=== PATIENT | female | born 1980 | race Caucasian/White ===

== ENCOUNTER 2016-10-19 16:39 | Emergency (ER) | payer OTHER ==
[~2016-10-19] VITALS: Ht 165.1 cm; Wt 98.0 kg
[~2016-10-19 16:39] MED LIST: ATV5X PO; OXYC1TAB3 PO; PROM25TA16 PO; SUCR1TAB PO; ZLF/50 PO
[2016-10-19 17:01] VITALS: TEMP 36.8; Ht 165.1 cm; Wt 98.0 kg
[2016-10-19] MEDS ORDERED: HYDROCODONE/ACETAMOPHEN 5/325MG TAB PO ONE (17:45)
[2016-10-19] MEDS ORDERED: TNR25 PO (18:12)
[2016-10-19] MEDS ORDERED: ZLF/100 PO (18:12)
--- NOTE | 2016-10-19 18:14 | DIAGNOSTIC IMAGING REPORT ---
SACRUM COCCYX MIN 2 VIEWS CLINICAL HISTORY: FALL, EVAL FX. Sacrum/coccyx pain. COMPARISON STUDY: Sacrum/coccyx 10/24/2013. FINDINGS: The bilateral sacroiliac joints are intact. There is a midline intrauterine device. No fractures within the sacrum or coccyx. Presacral soft tissues are intact. IMPRESSION: No fractures within the sacrum or coccyx. Electronically signed by: Roderick Cardenas M.D. 10/19/2016 6:12 PM Dictated Date/Time: 10/19/2016 6:11 PM
--- NOTE | 2016-10-19 18:15 | DIAGNOSTIC IMAGING REPORT ---
RIGHT ELBOW 3 VIEWS HISTORY: Right elbow pain. COMPARISON: None. FINDINGS: There is no fracture or dislocation. Mild soft tissue swelling at the olecranon. There is no joint effusion. No radiopaque foreign bodies. IMPRESSION: No fractures. Electronically signed by: Roderick Cardenas M.D. 10/19/2016 6:13 PM Dictated Date/Time: 10/19/2016 6:13 PM
[2016-10-19] MEDS ORDERED: HYDR-5688 PO (18:29)
--- NOTE | 2016-10-19 18:30 | EMERGENCY ROOM VISIT NOTE ---
ED Visit Note First contact with patient: 17:22 CHIEF COMPLAINT: Tailbone and right elbow pain after a fall HISTORY OF PRESENT ILLNESS: Patient is a 36-year-old white female who presents emergency department for evaluation of tailbone pain and right elbow pain. She sustained a fall last evening. She was trying to get in through a window. She states that she had stepped through the window with her right leg, and her left leg slipped, causing her to fall straddling the window ledge, injuring her tailbone. She then fell out of the window and struck the right elbow. She notes excruciating tailbone pain that she presently rates a 10/10. It is worse with any type of movement. She tried soaking in a hot tub, taking ibuprofen and applying topical Biofreeze. The pain is located low in her tailbone in the gluteal region, and does not radiate. There is no low back pain. The elbow is only slightly swollen and bruised that she has been abrasion over it. She denies any abdominal pain, urinary symptoms or perineal injury. There is no leg numbness or weakness. There has been no vomiting or abdominal pain. REVIEW OF SYSTEMS: Review of systems as per HPI. All other systems reviewed were negative. At least 6 systems reviewed. PMH: Electronic medical records are reviewed and summarized as above/below. See Problem List. SOCIAL HISTORY: Patient lives at home. PHYSICAL EXAM: Vital Signs: Reviewed Nurse's notes. MENTAL STATUS: Obese 36-year -old white female who is awake and alert and laying on her left side on the gurney in moderate distress due to her back pain. She has significant discomfort when she tries to stand up. HEART: Regular rate and rhythm. LUNGS: Clear to auscultation. ABDOMEN: Soft, non-tender, no masses or organs felt. Bowel sounds normoactive. BACK: Examination of the patient's back does not show any ecchymosis, abrasions or outward signs of trauma. She has tenderness to palpation low over the sacrum and coccygeal region. There is no midline tenderness over the spinous processes of the lumbar spine. Range of motion is diminished secondary to discomfort. She admits with an antalgic gait. She is able to toe and heel rise without difficulty. EXTREMITIES: Examination of the right elbow shows a superficial abrasion over the tip of the olecranon which is slightly swollen and ecchymotic. She is tender over the abrasion only. She can extend and flex fully, has full pronation and supination. EMERGENCY DEPARTMENT COURSE: The patient was medicated with one Happy tablet orally and had sacrum/coccyx x-rays and right elbow x-rays performed. There is no evidence for acute fracture or bony abnormality noted. Conservative care measures were discussed. Patient was advised to apply ice to the coccyx region and get a doughnut pillow for comfort. Regarding her elbow she has sustained an abrasion and a contusion. She was encouraged to watch for any signs of infection. Keep the area covered with antibiotic ointment and a bandage. She was discharged to home with a family member driving. She rated her discomfort a 7/10 at discharge. Differential diagnosis includes sacral/coccygeal fracture, contusion, pilonidal cyst abscess, among others. Patient was reviewed in the [facility] Pres[facility] Drug Monitoring Program, and there were no red flags noted. SACRUM COCCYX MIN 2 VIEWS CLINICAL HISTORY: FALL, EVAL FX. Sacrum/coccyx pain. COMPARISON STUDY: Sacrum/coccyx 10/24/2013. FINDINGS: The bilateral sacroiliac joints are intact. There is a midline intrauterine device. No fractures within the sacrum or coccyx. Presacral soft tissues are intact. IMPRESSION: No fractures within the sacrum or coccyx. RIGHT ELBOW 3 VIEWS HISTORY: Right elbow pain. COMPARISON: None. FINDINGS: There is no fracture or dislocation. Mild soft tissue swelling at the olecranon. There is no joint effusion. No radiopaque foreign bodies. IMPRESSION: No fractures. Problem List Medical Problems: (1) Benign hypertension Status: Chronic Surgical Problems: (1) section Status: Resolved Current/Historical Medications Scheduled Atenolol (Atenolol), 25 MG PO DAILY Sertraline HCl (Sertraline HCl), 100 MG PO DAILY Scheduled PRN Hydrocodone/Acetaminophen 5MG/325MG (Happy 5MG/325MG), 1-2 TABLETS PO Q4 PRN for Pain Lorazepam (Lorazepam), 0.5 MG PO TID PRN for Anxiety Allergies Coded Allergies: Prednisone (Verified Allergy, Intermediate, HIVES, DIZZINESS, 10/19/16) Carbinoxamine (Verified Allergy, Unknown, RONDEC-RASH, 2/5/17) Replaces RONDEC Celecoxib (Verified Allergy, Unknown, RASH, 10/19/16) Naproxen (Verified Allergy, Unknown, RASH-HAS TAKEN MOTRIN AT HOME, 10/19/16 ) Pseudoephedrine (Verified Allergy, Unknown, RONDEC-RASH, 10/19/16) Replaces RONDEC Uncoded Allergies: STEROID INJECTION (Allergy, Unknown, chills, sweats, vomiting, nausea, 11/24) Vital Signs Date Time Temp Pulse Resp B/P Pulse Ox O2 Delivery O2 Flow Rate FiO2 10/19/16 18:59 91 20 184/105 97 10/19/16 17:01 36.8 98 20 155/105 100 Room Air Medications Administered Medications (Trade) Dose Ordered Sig/Jamar Route Start Time Stop Time Status Last Admin Dose Admin Acetaminophen/ Hydrocodone Bitart (Happy 5/325 Tab) 1 tab NOW ONCE PO 10/19/16 17:45 10/19/16 17:46 DC 10/19/16 17:42 1 TAB Departure Information Impression Primary Impression: Coccygeal contusion Additional Impressions: Elbow abrasion Elbow contusion Prescriptions Hydrocodone/Acetaminophen 5MG/325MG (Happy 5MG/325MG) Tab 1-2 TABLETS PO Q4 Y for Pain, #20 TAB For Initial Treatment Prov: Victorina Cruz PA 10/19/16 Referrals Anika Maloney M.D. (MEDICAL) (PCP) Patient Instructions My [facility] Additional Instructions DO NOT drive, drink alcohol, operate machinery, or perform dangerous activities today. You were given medications in the ER that can affect your ability to safely function or operate a vehicle. Hydrocodone/Acetaminophen (Happy) 5/325 mg: Take 1-2 pills every four hours for breakthrough pain. Avoid alcohol, operating machinery or dangerous equipment, working on ladders or roofs, DRIVING, or situations where being under the influence may be dangerous. It is recommended to use an olpr-vkh-wungjkc stool softener such as Colace, 100mg twice daily while taking this medication to avoid constipation. Ibuprofen(Motrin, Advil) may be used for fever or pain. Use 600mg every six hours as needed. Take with food. Avoid using more than 2400mg in a 24 hour period. Do not use 2400mg per day for more than three consecutive days without physician direction. Prolonged inappropriate use can lead to stomach upset or ulcers. This medication can be taken if you need to drive, work, or perform activities which may be dangerous when taking narcotic pain medication. (AND/OR) Acetaminophen(Tylenol) may be used for fever or pain. Use 1000mg every six hours as needed. Avoid using more than 3000mg in a 24 hour period. This medication can be taken if you need to drive, work, or perform activities which may be dangerous when taking narcotic pain medication. Rest and avoid heavy lifting until your symptoms resolve and then gradually return to full activity. A good rule of thumb is if it hurts your back to perform a certain activity, then it should be avoided until you are healthy again. Ice as needed for pain. Sit on a donut pillow for comfort. Continue current medications. Return to the ER immediately for any numbness, tingling, severe pain, loss of control of your bowels or bladder, inability to walk, or as needed. Follow up with your primary care physician within 3-5 days for a recheck of your current condition. Problem Qualifiers Primary Impression: Coccygeal contusion Encounter type: initial encounter Qualified Codes: S30.0XXA - Contusion of lower back and pelvis, initial encounter Additional Impressions: Elbow abrasion Encounter type: initial encounter Laterality: right Qualified Codes: S50.311A - Abrasion of right elbow, initial encounter Elbow contusion Encounter type: initial encounter Laterality: right Qualified Codes: S50.01XA - Contusion of right elbow, initial encounter
[2016-10-19 18:59] VITALS: BP 184/105; PULSE 91; O2SAT 97
== END 2016-10-19 19:00 | disposition home or self-care (01) ==
LOC: C.EDB 16:40 → C.EDD 19:00
DX: S30.0XXA Contusion of lower back and pelvis, initial encounter (principal); S50.01XA Contusion of right elbow, initial encounter; S50.311A Abrasion of right elbow, initial encounter; W01.0XXA Fall on same level from slipping, tripping and stumbling without subsequent striking against object, initial encounter; I10 Essential (primary) hypertension; Z79.899 Other long term (current) drug therapy; Z88.8 Allergy status to other drugs, medicaments and biological substances

== ENCOUNTER 2016-11-28 16:44 | Emergency (ER) | payer OTHER ==
[~2016-11-28] VITALS: Ht 162.6 cm; Wt 97.1 kg
[~2016-11-28 16:44] MED LIST changes: +HYDR-5688 PO; -OXYC1TAB3 PO; -PROM25TA16 PO; -SUCR1TAB PO; +TNR25 PO; +ZLF/100 PO; -ZLF/50 PO
[2016-11-28 16:58] VITALS: TEMP 36.9; Ht 162.6 cm; Wt 97.1 kg
[2016-11-28] MEDS ORDERED: HYDR-5688 PO (17:29)
[2016-11-28] MEDS ORDERED: PENI-82 PO (17:29)
[2016-11-28 17:34] VITALS: BP 180/120; PULSE 78; O2SAT 96
--- NOTE | 2016-11-28 20:32 | EMERGENCY ROOM VISIT NOTE ---
ED Visit Note First contact with patient: 17:16 CHIEF COMPLAINT: Toothache HISTORY OF PRESENT ILLNESS: This 36-year-old female patient presented to the emergency department with a progressive toothache for past one month. The patient believes it is coming from her left upper molar. The patient has followed with local urgent care clinics and has done well with antibiotics. She has contacted her dentist office on a weekly basis, and was not able to find a cancellation appointment to be seen more rapidly. She has an appointment in 7 days. The pain is now steady and severe and radiates to the face. They rate their pain a 8/10 and the ibuprofen and Tylenol they have been taking has not relieved the pain. Denies facial swelling or fever. The patient denies any discharge from the mouth. REVIEW OF SYSTEMS: A 6 system review of systems was completed with positives and pertinent negatives listed in the HPI. ALLERGIES: See EMR MEDICATIONS: See EMR PMH: See EMR SOCIAL HISTORY: Lives locally PHYSICAL EXAM: Vitals are noted on the nurse's note and reviewed by myself. Vital signs stable. GENERAL: White female, in no acute distress, nondiaphoretic, well-developed well -nourished. Mouth: The left upper molar #15 tooth is very carious and the gum is swollen and tender around it, without any discharge or signs of an abscess. The remainder of the pharynx and tonsils are without erythema, edema, or exudate. The airway is patent. There is no facial swelling, cervical or submandibular lymphadenopathy. The patient appears uncomfortable and in pain. The patient has overall fair dental hygiene. EARS: External auditory canals clear, tympanic membranes pearly rodgers without erythema or effusion bilaterally. HEART: Regular rate and rhythm without murmur gallop or rub LUNG: Clear to auscultation bilateral ED COURSE: Physical exam and history were performed. Nursing notes and EMR were reviewed. The patient appears to have left upper dental pain for the past several weeks. The patient does have an appointment scheduled in one week with her dentist. She does not have concerning record and the [place] drug monitoring program. She is not seen here regularly for pain-related complaints. She will be given a course of Pen-Vee K and a short course of Vicodin for pain control. She is to keep her dental appointment, and was invited back to the ER with any new, worsening, or concerning symptoms.. Problem List Medical Problems: (1) Benign hypertension Status: Chronic Surgical Problems: (1) section Status: Resolved Current/Historical Medications Scheduled Atenolol (Atenolol), 12.5 MG PO DAILY Penicillin V Potassium (Veetids), 500 MG PO QID Sertraline HCl (Sertraline HCl), 100 MG PO DAILY Scheduled PRN Hydrocodone/Acetaminophen 5MG/325MG ([place] 5MG/325MG), 1 TABLET PO Q6 PRN for Pain Lorazepam (Lorazepam), 0.5 MG PO TID PRN for Anxiety Allergies Coded Allergies: Prednisone (Verified Allergy, Intermediate, HIVES, DIZZINESS, 11/28/16) Carbinoxamine (Verified Allergy, Unknown, RONDEC-RASH, 11/28/16) Replaces RONDEC Celecoxib (Verified Allergy, Unknown, RASH, 11/28/16) Naproxen (Verified Allergy, Unknown, RASH-HAS TAKEN MOTRIN AT HOME, ) Pseudoephedrine (Verified Allergy, Unknown, RONDEC-RASH, 11/28/16) Replaces RONDEC Uncoded Allergies: STEROID INJECTION (Allergy, Unknown, chills, sweats, vomiting, nausea, 11/24) Vital Signs Date Time Temp Pulse Resp B/P Pulse Ox O2 Delivery O2 Flow Rate FiO2 11/28/16 17:34 78 18 180/120 96 11/28/16 16:58 36.9 99 18 170/125 97 Room Air Departure Information Impression Primary Impression: Pain, dental Dispostion Home / Self-Care Condition GOOD Prescriptions Penicillin V Potassium (Veetids) 500 Mg Tab 500 MG PO QID for 10 Days, #40 TAB Prov: Crescencio Venegas PA-C 11/28/16 Hydrocodone/Acetaminophen 5MG/325MG ([place] 5MG/325MG) Tab 1 TABLET PO Q6 Y for Pain, #12 TAB For Initial Treatment Prov: Crescencio Veneags PA-C 11/28/16 Forms HOME CARE DOCUMENTATION FORM, IMPORTANT VISIT INFORMATION Patient Instructions My [facility] Additional Instructions You were seen and evaluated today on an emergency basis only. This is not a substitute for, or an effort to provide, complete comprehensive medical care. It is not possible to recognize and treat all injuries or illnesses in a single emergency department visit. For this reason it is recommended that you followup with your dentist next Thursday as scheduled for definitive care. [place] (hydrocodone/acetaminophen) 5/325 mg every 6 hours as needed for worsening breakthrough pain. Do not drink or drive on [place]. This medication will likely make you tired. Do not take [place] and Tylenol at the same time as both contain acetaminophen. [place] may cause constipation. You may wish to take an gmok-pav-iydfnrz stool softener like Colace if this occurs. Take Pen-Vee K 500 mg 4 times daily for the next 10 days. You are welcome to return to the emergency department anytime with new, worsening, or concerning symptoms.
== END 2016-11-28 17:36 | disposition home or self-care (01) ==
LOC: C.EDB 16:44 → C.EDD 17:36
DX: K08.89 Other specified disorders of teeth and supporting structures (principal); I10 Essential (primary) hypertension; Z79.899 Other long term (current) drug therapy

== ENCOUNTER 2016-11-30 15:15 | Emergency (ER) | payer OTHER ==
[~2016-11-30] VITALS: Ht 162.6 cm; Wt 96.8 kg
[~2016-11-30 15:15] MED LIST changes: +PENI-82 PO
[2016-11-30 15:26] VITALS: TEMP 37.1; Ht 162.6 cm; Wt 96.8 kg
[2016-11-30] MEDS ORDERED: PENI500T2 PO (15:53)
[2016-11-30] MEDS ORDERED: HYDR-5688 PO (15:53)
[2016-11-30] MEDS ORDERED: CEFTRIAXONE SOD 350MG/ML 1 GM VIAL IM ONE (16:00)
[2016-11-30] MEDS ORDERED: AMOXICIL/CLAVU 875MG HOME PACK PO ONE (16:00)
[2016-11-30] MEDS ORDERED: AMOX875T PO (16:04)
[2016-11-30 17:12] VITALS: BP 138/80; PULSE 76; O2SAT 96
--- NOTE | 2016-11-30 21:39 | EMERGENCY ROOM VISIT NOTE ---
ED Visit Note First contact with patient: 15:52 CHIEF COMPLAINT: Toothache HISTORY OF PRESENT ILLNESS: This 36-year-old female patient presented to the emergency department with a progressive toothache for past several days. The patient was initially seen 2 days ago by myself in the ER with this complaint. At that time she is given a prescription for Pen-Vee K and Vicodin. The patient has taken 6 doses of the antibiotic, and has had worsening of her pain. She now complains of tenderness in her cheek and facial swelling. The patient believes it is coming from a left upper molar. The patient has a dentist appointment set up in 5 days. They rate their pain a 8/10. The patient denies any discharge from the mouth. REVIEW OF SYSTEMS: A 6 system review of systems was completed with positives and pertinent negatives listed in the HPI. ALLERGIES: See EMR MEDICATIONS: See EMR PMH: See EMR SOCIAL HISTORY: Lives locally PHYSICAL EXAM: Vitals are noted on the nurse's note and reviewed by myself. Vital signs stable. GENERAL: White female, in no acute distress, nondiaphoretic, well-developed well -nourished. Mouth: The left upper #15 tooth is very carious and the gum is swollen and tender around it, without any discharge or signs of an abscess. The remainder of the pharynx and tonsils are without erythema, edema, or exudate. The airway is patent. There is minimal facial swelling. No lymphadenopathy. The patient appears uncomfortable and in pain. The patient has overall fair dental hygiene. EARS: External auditory canals clear, tympanic membranes pearly rodgers without erythema or effusion bilaterally. HEART: Regular rate and rhythm without murmur gallop or rub LUNG: Clear to auscultation bilateral ED COURSE: Physical exam and history were performed. Nursing notes and EMR were reviewed. The patient was seen by myself 2 days ago and treated for a dental infection. She has some very minimal left-sided facial swelling today that is new from 2 days ago. The patient does not appear toxic or with signs of abscess. No [place] appreciated. The patient will be transitioned to Augmentin by mouth. She will be given 1 g IM Rocephin here. The patient was asked to keep her appointment with her dentist later this week. If she does have progressing symptoms I recommended that she return to the ER immediately, as she may need IV intervention. At this time I do not feel this is necessary. The patient was pleased with this plan of voice understanding. Problem List Medical Problems: (1) Benign hypertension Status: Chronic Surgical Problems: (1) section Status: Resolved Current/Historical Medications Scheduled Amoxicillin & Pot Clavulanate (Augmentin 875-125 mg), 1 TAB PO BID Atenolol (Atenolol), 12.5 MG PO DAILY Penicillin V Potassium (Veetids), 500 MG PO QID Sertraline HCl (Sertraline HCl), 100 MG PO DAILY Scheduled PRN Hydrocodone/Acetaminophen 5MG/325MG ([place] 5MG/325MG), 1 TABLET PO Q6H PRN for Pain Lorazepam (Lorazepam), 0.5 MG PO TID PRN for Anxiety Allergies Coded Allergies: Prednisone (Verified Allergy, Intermediate, HIVES, DIZZINESS, 11/30/16) Carbinoxamine (Verified Allergy, Unknown, RONDEC-RASH, 11/30/16) Replaces RONDEC Celecoxib (Verified Allergy, Unknown, RASH, 11/30/16) Naproxen (Verified Allergy, Unknown, RASH-HAS TAKEN MOTRIN AT HOME, ) Pseudoephedrine (Verified Allergy, Unknown, RONDEC-RASH, 11/30/16) Replaces RONDEC Uncoded Allergies: STEROID INJECTION (Allergy, Unknown, chills, sweats, vomiting, nausea, 11/24) Vital Signs Date Time Temp Pulse Resp B/P Pulse Ox O2 Delivery O2 Flow Rate FiO2 11/30/16 17:12 76 20 138/80 96 11/30/16 15:26 37.1 96 20 142/101 97 Room Air Medications Administered Medications (Trade) Dose Ordered Sig/Jamar Route Start Time Stop Time Status Last Admin Dose Admin Amoxicillin/ Clavulanate Potassium (Augmentin 875MG Home Pack) 1 homepack UD ONCE PO 11/30/16 16:00 11/30/16 16:02 DC 11/30/16 17:06 1 HOMEPACK Ceftriaxone Sodium (Rocephin Im) 1,000 mg NOW ONCE IM 11/30/16 16:00 11/30/16 16:02 DC 11/30/16 17:05 1,000 MG Departure Information Impression Primary Impression: Pain, dental Dispostion Home / Self-Care Condition GOOD Prescriptions Amoxicillin & Pot Clavulanate (Augmentin 875-125 mg) 1 Tab Tab 1 TAB PO BID for 9 Days, #18 TAB Prov: Crescencio Venegas PA-C 11/30/16 Forms HOME CARE DOCUMENTATION FORM, IMPORTANT VISIT INFORMATION Patient Instructions My [facility] Additional Instructions You were seen and evaluated today on an emergency basis only. This is not a substitute for, or an effort to provide, complete comprehensive medical care. It is not possible to recognize and treat all injuries or illnesses in a single emergency department visit. For this reason it is recommended that you followup with your dentist as scheduled on Thursday. Discontinue pen VK. Begin Augmentin. Amoxicillin Clavulanate (Augmentin) 875mg: Take one pill twice daily for 10 total days for your infection. All antibiotics can cause diarrhea. If this occurs and you feel worse or it does not resolve in 1-2 days follow up with your doctor or return to the Emergency Department as this could be signs of serious underlying problems. Any medication can cause an allergic reaction, stop the pills immediately and return to the ER for rash, hives, breathing difficulties, or swelling. You are welcome to return to the emergency department anytime with new, worsening, or concerning symptoms.
== END 2016-11-30 17:13 | disposition home or self-care (01) ==
LOC: C.EDB 15:16 → C.EDD 17:13
DX: K08.89 Other specified disorders of teeth and supporting structures (principal); I10 Essential (primary) hypertension

== ENCOUNTER 2017-10-11 21:28 | Emergency (ER) | payer OTHER ==
[~2017-10-11] VITALS: Ht 162.6 cm; Wt 93.1 kg
[~2017-10-11 21:28] MED LIST changes: -PENI-82 PO; +PENI500T2 PO
[2017-10-11 21:32] VITALS: TEMP 36.7; Ht 162.6 cm; Wt 93.1 kg
[2017-10-11] MEDS ORDERED: CYCL5TAB PO (21:54)
[2017-10-11] MEDS ORDERED: MELO7.5T5 PO (21:54)
[2017-10-11] MEDS ORDERED: HYDROmorphone INJ 1 MG/ML SYR IM STA (22:10)
[2017-10-11] MEDS ORDERED: OXYC1TAB3 PO (23:27)
[2017-10-11] MEDS ORDERED: LIDODERM (LIDOCAINE) PATCH 5% TD STA (23:29)
[2017-10-11] MEDS ORDERED: OXYCODONE IR HOME PACK PO ONE (23:30)
[2017-10-11] MEDS ORDERED: LDDP5 TOP (23:32)
--- NOTE | 2017-10-11 23:32 | EMERGENCY ROOM VISIT NOTE ---
History First contact with patient: 21:51 Chief Complaint: BACK PAIN Stated Complaint: BACK PAIN - FALL History of Present Illness The patient is a 37 year old female who presents to the Emergency Room with complaints of low back pain. The patient reports she has a history of problems with L3, L4 and L5. She has seen a specialist recommended surgery, but the patient would like to avoid surgery if possible. She reports that her back "pops out" occasionally. She states that she slipped early this week on the ice and did not sustain any major injuries. However, over the course of the week she had increasing pain in her low back. She saw her primary care provider 2 days ago and was prescribed oxycodone and anti-inflammatories. She has been taking these for the past 2 days without improvement. She states the pain is in her right low back and describes the pain as a throbbing, shooting pain rated 10/10. The pain radiates down her leg. She reports some tingling. She denies numbness, weakness, bowel/bladder dysfunction, urinary retention, or fevers. She denies abdominal pain, nausea or vomiting. Review of Systems A complete 10 point review of systems was reviewed with the patient with pertinent positives and negatives as per history of present illness. All else were negative. Past Medical/Surgical History Medical Problems: (1) Benign hypertension Surgical Problems: (1) section Social History Smoking Status: Never Smoker Alcohol Use: occasionally Drug Use: none Marital Status: single Housing Status: lives with family Occupation Status: unemployed Current/Historical Medications Scheduled Atenolol (Atenolol), 25 MG PO DAILY Lidocaine (Lidocaine), 1 PATCH TOP DAILY Meloxicam (Mobic), 7.5 MG PO QDB Sertraline HCl (Sertraline HCl), 200 MG PO HS Scheduled PRN Cyclobenzaprine Hcl (Flexeril), 5 MG PO TID PRN for Muscle Spasms Hydrocodone/Acetaminophen 5MG/325MG ([place] 5MG/325MG), 1 TABLET PO Q6H PRN for Pain Lorazepam (Lorazepam), 0.5 MG PO TID PRN for Anxiety Oxycodone Ir (Roxicodone Ir), 1-2 TAB PO Q4H PRN for Pain Physical Exam Vital Signs Date Time Temp Pulse Resp B/P (MAP) Pulse Ox O2 Delivery O2 Flow Rate FiO2 10/11/17 23:59 82 18 134/118 98 Room Air 10/11/17 23:11 81 18 163/115 96 Room Air 10/11/17 22:33 94 18 161/133 98 Room Air 10/11/17 21:32 36.7 105 18 137/96 99 Room Air Physical Exam VITALS: Vitals are noted on the nurse's note and reviewed by myself. Vital signs stable. GENERAL: This is a 37-year-old female, in no acute distress, nondiaphoretic, well-developed well-nourished. SKIN: The skin was without rashes. HEART: Regular rate and rhythm without murmurs gallops or rubs. LUNGS: Clear to auscultation bilaterally without wheezes, rales or rhonchi. ABDOMEN: Positive bowel sounds x 4. Soft, nontender to palpation. MUSCULOSKELETAL: Tenderness to palpation with light touch over the right lumbar region. Full range of motion of bilateral lower extremities. Strength 5/5. NEURO: Patient was alert and oriented to person place and time. Patellar reflexes 2+ bilaterally. Medical Decision & Procedures Medications Administered Medications (Trade) Dose Ordered Sig/Jamar Route Start Time Stop Time Status Last Admin Dose Admin Hydromorphone HCl (Dilaudid Inj) 1 mg NOW STAT IM 10/11/17 22:10 10/11/17 22:12 DC 10/11/17 22:30 1 MG Oxycodone HCl (Roxicodone Immediate Rel 5MG Home Pack) 1 homepack UD ONCE PO 10/11/17 23:30 10/11/17 23:31 DC 10/11/17 23:51 1 HOMEPACK Lidocaine (Lidoderm Patch 5%) 1 patch NOW STAT TD 10/11/17 23:29 10/11/17 23:31 DC 10/11/17 23:51 1 PATCH Medical Decision Differential diagnosis includes cauda equina syndrome, cord compression, disc herniation, muscle spasm, lumbar strain, epidural abscess, malignancy, transverse myelitis, urinary tract infection, colitis, diverticulitis, kidney stone, among others. The patient is a 37-year-old female who presents today complaining of low back pain with radiation into the right leg. There is no evidence of cauda equina syndrome or cord compression. She was treated with IM Dilaudid and Toradol with some improvement. She was given a home pack and small prescription for oxycodone. She will need to follow-up with her primary care provider for further prescriptions and was instructed that she will not receive further narcotic prescription for back pain from the ER. Based on the patient's presentation and work up, I feel the patient is stable for outpatient treatment. The patient was educated to return to the emergency department for any worsening of their current condition or new/concerning symptoms. She will follow up with her PCP. [facility] Monitoring Program Search Results: patient reviewed within database, no issues identified Medication Reconcilliation Current Medication List: was personally reviewed by me Blood Pressure Screening Patient's blood pressure: Elevated blood pressure Blood pressure disposition: Elevated BP felt to be situational, Referred to PCP Impression Primary Impression: Lumbar radiculopathy Departure Information Dispostion Home / Self-Care Condition GOOD Prescriptions Lidocaine (Lidocaine) 1 Patch Tdsy 1 PATCH TOP DAILY, #5 PATCH wear 1 patch up to 12 hours daily Prov: Katarina Wolff .COSMO 10/11/17 Oxycodone Ir (Roxicodone Ir) 5 Mg Tab 1-2 TAB PO Q4H Y for Pain, #8 TAB For Initial Treatment Prov: Katarina Wolff PA-C 10/11/17 Referrals Anika Maloney M.D. (MEDICAL) (PCP) Patient Instructions My [facility] Additional Instructions You have been treated in the Emergency Department for Back Pain. You have received pain medicine in the emergency department which impairs your ability to operate a vehicle. It is illegal for you to drive after receiving these medicines. You have been prescribed Oxy IR to be used for pain control. This is a narcotic medication. You cannot drive or consume alcohol while on this medicine. This medicine should only be used for pain that cannot be controlled with over-the- counter pain medicines. For pain control, you can use the following dznf-ial-xewaryz medicines (if >12 yo): - Regular strength (325mg/tab) Tylenol (acetaminophen) 2 tabs every 4-6 hours as needed. Do not exceed 12 tablets in a 24 hour period. Avoid taking more than 4 grams (4000 mg) of Tylenol per day. This includes any other sources of acetaminophen you may take on a regular basis. You may apply the lidocaine patch to the back for pain. You may wear the patch up to 12 hours per day. You should schedule a follow-up appointment in 2-3 days with your Primary Care Provider for further evaluation and treatment of your back pain. Return to the Emergency Department if your current symptoms worsen despite treatment course outlined above, or if you develop any of the following symptoms : intractable pain despite aforementioned treatment course, loss of control of your bowel or bladder, numbness or tingling in your groin, or development of a fever.
[2017-10-11 23:59] VITALS: BP 134/118; PULSE 82; O2SAT 98
== END 2017-10-12 00:01 | disposition home or self-care (01) ==
LOC: C.EDB 21:28
DX: M54.16 Radiculopathy, lumbar region (principal); I10 Essential (primary) hypertension

== ENCOUNTER 2017-12-28 19:51 | Emergency (ER) | payer OTHER ==
[~2017-12-28] VITALS: Ht 162.6 cm; Wt 93.4 kg
[~2017-12-28 19:51] MED LIST changes: +CYCL5TAB PO; +LDDP5 TOP; +MELO7.5T5 PO; +OXYC1TAB3 PO; -PENI500T2 PO
[2017-12-28 19:57] VITALS: BP 129/95; TEMP 37; Ht 162.6 cm; Wt 93.4 kg
[2017-12-28] MEDS ORDERED: XYLOCAINE 1%/SOD BICARB 20 ML VIAL INFIL ONE (20:15)
[2017-12-28] MEDS ORDERED: AMOXICIL/CLAVU 875MG HOME PACK PO ONE (20:15)
[2017-12-28] MEDS ORDERED: AMOXICILLIN/CLAVULANATE TAB 875 MG TAB PO ONE (20:15)
[2017-12-28] MEDS ORDERED: AMOX875T PO (20:48)
[2017-12-28 20:54] VITALS: PULSE 100; O2SAT 100
--- NOTE | 2017-12-28 22:41 | EMERGENCY ROOM VISIT NOTE ---
History First contact with patient: 19:58 Chief Complaint: LACERATION/CUT (SUT/DERMABOND) Stated Complaint: LT ARM CUT Nursing Triage Summary: Pt was breaking up her dogs from fighting and she not sure if his tooth lacerated her left arm. It happened 30 minutes ago. History of Present Illness The patient is a 37 year old female who presents to the Emergency Room with complaints of laceration to her left forearm that occurred about 30 minutes ago. The patient was breaking up a fight between 2 of her dogs, and believes that a tooth caused the laceration. There was no distinct crushing injury. The patient is reportedly up-to-date on her tetanus. She has minimal persistent bleeding. She does not have pain of her hand or wrist. She rates her discomfort a 9/10 that worsens with palpation in the area. She has not taken anything jgly-hyj-jtvnlet for discomfort. Review of Systems More than 10 systems were reviewed and otherwise negative with the exception of history of present illness. Past Medical/Surgical History Medical Problems: (1) Benign hypertension Surgical Problems: (1) section Family History No pertinent family history Social History Smoking Status: Never Smoker Alcohol Use: occasionally Drug Use: none Marital Status: single Housing Status: lives with family Occupation Status: unemployed Current/Historical Medications Scheduled Amoxicillin & Pot Clavulanate (Augmentin 875-125 mg), 1 TAB PO BID Atenolol (Atenolol), 25 MG PO DAILY Lidocaine (Lidocaine), 1 PATCH TOP DAILY Meloxicam (Mobic), 7.5 MG PO QDB Sertraline HCl (Sertraline HCl), 200 MG PO HS Scheduled PRN Cyclobenzaprine Hcl (Flexeril), 5 MG PO TID PRN for Muscle Spasms Hydrocodone/Acetaminophen 5MG/325MG ([place] 5MG/325MG), 1 TABLET PO Q6H PRN for Pain Lorazepam (Lorazepam), 0.5 MG PO TID PRN for Anxiety Oxycodone Ir (Roxicodone Ir), 1-2 TAB PO Q4H PRN for Pain Physical Exam Vital Signs Date Time Temp Pulse Resp B/P (MAP) Pulse Ox O2 Delivery O2 Flow Rate FiO2 12/28/17 20:54 100 100 12/28/17 19:57 37.0 105 20 129/95 97 Room Air Physical Exam VITALS: Vitals are noted on the nurse's note and reviewed by myself. Vital signs stable. GENERAL: Well-developed, well-nourished, white female, who is in no acute distress and resting comfortably. Patient is cooperative with the examination. NECK: Supple without nuchal rigidity. No lymphadenopathy. No thyromegaly. Cervical spine is nontender. HEART: Regular rate and rhythm without murmurs gallops or rubs. LUNGS: Clear to auscultation bilaterally without wheezes, rales or rhonchi. No retractions or accessory muscle use. MUSCULOSKELETAL: There is a fairly linear 4.5 cm laceration along the proximal volar forearm of the left upper extremity. Laceration does gape and will require repair. There is mild active bleeding. No significant puncture wounds noted. Compartments are soft. Left elbow, wrist, and hand are without obvious injuries. No other significant injury noted. NEURO: Patient was alert and oriented to person place and time. CN II through XII grossly intact. No focal neurological deficits. Medical Decision & Procedures Medications Administered Medications (Trade) Dose Ordered Sig/Jamar Route Start Time Stop Time Status Last Admin Dose Admin Lidocaine HCl (Buffered Lidocaine 1% Inj) 20 ml NOW ONCE INFIL 12/28/17 20:15 12/28/17 20:16 DC 12/28/17 20:11 20 ML Amoxicillin/ Clavulanate Potassium (Augmentin Tab) 875 mg NOW ONCE PO 12/28/17 20:15 12/28/17 20:16 DC 12/28/17 20:10 875 MG Amoxicillin/ Clavulanate Potassium (Augmentin 875MG Home Pack) 1 homepack UD ONCE PO 12/28/17 20:15 12/28/17 20:16 DC 12/28/17 20:11 1 HOMEPACK Procedure Laceration repair. Patient elects to have their laceration repaired. Verbal consent was obtained to perform the procedure. There is an abundance of materials available for the procedure. Patient is not allergic to latex. Using sterile technique the wound was cleaned with Betadine. The area was sterilely draped. 8 ml of 1% buffered lidocaine was used to anesthetize the left forearm laceration. Once the patient was anesthetized, the wound was copiously irrigated under pressure with sterile saline. The wound was explored and there were no deep structures injured such as tendons, bone, or significant blood vessels. The laceration was repaired using 1 simple running 5-0 Vicryl suture and 7 simple interrupted 5-0 nylon sutures with the wound edges being well approximated. Hemostasis was achieved. The area was cleaned with sterile saline and dressed with bacitracin ointment and bandage. Patient tolerated the procedure well without complications. Blood loss was negligible. ED Course Physical exam and history were performed. Nursing notes, EMR, and Medication List were personally reviewed. Patient appears to have suffered a laceration to her left forearm. The laceration seems to be from the mouth of 1 of her own dogs. Her animals are reportedly up-to-date on her immunizations including rabies. The patient does not have concerns for the rabies status. The patient was given a dose of Augmentin here in the department. Her wound was repaired as above and she tolerated the procedure well. I will give her a continuation course of Augmentin. Dogbite form was completed and faxed. Wound care instructions were discussed. The patient was invited back to the ER with any new, worsening, or concerning symptoms. The chart was completed utilizing Printed [employer]ce Speech Voice Recognition Software. Grammatical errors, random word insertions, pronoun errors, and incomplete sentences are an occasional consequence of this system due to software limitations, ambient noise, and hardware issues. Any formal questions or concerns about the content, text, or information contained within the body of this dictation should be directly addressed to the provider for clarification. . Medical Decision Differential diagnosis includes, but is not limited to: Laceration, abrasion, foreign body, bite, infection, and others Impression Primary Impression: Laceration of forearm Additional Impression: Dog bite of forearm Departure Information Dispostion Home / Self-Care Condition GOOD Prescriptions Amoxicillin & Pot Clavulanate (Augmentin 875-125 mg) 1 Tab Tab 1 TAB PO BID for 7 Days, #14 TAB Prov: Crescencio Venegas PA-C 12/28/17 Forms HOME CARE DOCUMENTATION FORM, IMPORTANT VISIT INFORMATION Patient Instructions My [facility], ED Bite Dog, ED Laceration All, ED Scar Tips to Minimize Additional Instructions Keep wound clean and dry. Do not allow any crusting or dried blood to accumulate on sutures. If this occurs, use a mild soap/water on a Q-tip to clean the wound. Do not use Peroxide to clean the wound as this can delay healing Use an antibiotic ointment like Bacitracin for 3-4 days, then let wound dry. You may bathe and shower as normal, but DO NOT SOAK the wound. Suture removal in about 9-10 days with your Family Doctor or in the ER. Return sooner for any signs of infection, increasing redness, swelling, or drainage. Amoxicillin Clavulanate (Augmentin) 875mg: Take one pill twice daily for 7 days to prevent infection. All antibiotics can cause diarrhea. If this occurs and you feel worse or it does not resolve in 1-2 days follow up with your doctor or return to the Emergency Department as this could be signs of serious underlying problems. Any medication can cause an allergic reaction, stop the pills immediately and return to the ER for rash, hives, breathing difficulties, or swelling. Problem Qualifiers
== END 2017-12-28 20:52 | disposition home or self-care (01) ==
LOC: C.EDB 19:52 → C.EDD 20:52
DX: S51.852A Open bite of left forearm, initial encounter (principal); W54.0XXA Bitten by dog, initial encounter; I10 Essential (primary) hypertension; Z79.899 Other long term (current) drug therapy